=== PATIENT | female | born 1990 | race Caucasian/White ===

== ENCOUNTER → 2020-04-10 | Outpatient (CLI) | payer BC ==
--- NOTE | 2020-04-10 14:43 | US ---
EXAMINATION TYPE: US abdomen complete DATE OF EXAM: 04/10/2020 COMPARISON: NONE CLINICAL HISTORY: R10.2 PELVIC PAIN,N94.10 DYSPAREUNIA IN FEMALE,R10.9 ABD NICOLE. EXAM MEASUREMENTS: Liver Length: 12.4 cm Gallbladder Wall: 0.1 cm CBD: 0.3 cm Spleen: 10.2 cm Right Kidney: 9.0 x 3.0 x 3.4 cm Left Kidney: 9.3 x 4.6 x 4.1 cm Pancreas: partially obscured by overlying bowel gas Liver: wnl Gallbladder: wnl Evidence for sonographic Gibbs's sign: no CBD: wnl Spleen: wnl Right Kidney: wnl Left Kidney: wnl Upper IVC: wnl Abd Aorta: wnl The liver is homogenous. The intrahepatic portion of the IVC and proximal abdominal aorta are within normal limits. There is no evidence of cholelithiasis. Common bile duct is unremarkable. The visu alized portions of the pancreas are homogenous. The spleen is unremarkable. Kidneys are symmetric a nd free of hydronephrosis. No renal lesions are seen. IMPRESSION: No abnormality seen.
--- NOTE | 2020-04-10 14:43 | US ---
EXAMINATION TYPE: US pelvic complete DATE OF EXAM: 04/10/2020 COMPARISON: NONE CLINICAL HISTORY: R10.2 PELVIC PAIN. TECHNIQUE: . Transabdominal sonographic images of the pelvis were acquired. Transvaginal sonographi c images were medically necessary to better assess the following anatomy: Date of LMP: 03/27/20 EXAM MEASUREMENTS: Uterus: 9.1x 3.7 x 4.8 cm Endometrial Stripe: 0.6 cm Right Ovary: 2.3x 1.8 x 1.4 cm Left Ovary: 2.3 x 1.8 x 1.8 cm 1. Uterus: Anteverted 2. Endometrium: wnl 3. Right Ovary: wnl 4. Left Ovary: wnl 5. Bilateral Adnexa: wnl 6. Posterior cul-de-sac: wnl IMPRESSION: No Distinct abnormality seen.
--- NOTE | 2020-04-10 16:01 | XR ---
EXAMINATION TYPE: XR thoracic spine 2V DATE OF EXAM: 04/10/2020 CLINICAL HISTORY: pain TECHNIQUE: Frontal, lateral, and swimmer's view of thoracic spine are obtained. COMPARISON: None. FINDINGS: Thoracic spine show satisfactory alignment without evidence of acute fracture or dislocatio n. Vertebral body heights are preserved. Disc spaces are well preserved. Visualized ribs are unrem arkable. IMPRESSION: No acute fracture or dislocation is seen in the thoracic spine. ICD 10 NO FRACTURE, INIT IAL EVALUATION
--- NOTE | 2020-04-10 16:01 | XR ---
EXAMINATION TYPE: XR lumbosacral spine min 4V DATE OF EXAM: 04/10/2020 CLINICAL HISTORY: pain COMPARISON: NONE TECHNIQUE: Frontal, lateral, and oblique images of the lumbar spine are obtained. FINDINGS: There are 5 lumbar type vertebral bodies identified. The lumbar spine shows satisfactory alignment without evidence of acute fracture or dislocation. Vertebral body heights are within normal limits. Disc spaces are well preserved. The overlying soft tissue appears unremarkable. IMPRESSION: No acute fracture or dislocation is seen in the lumbar spine.ICD 10 NO FRACTURE, INITIAL EVALUATION
== END | disposition home or self-care (01) ==
LOC: RADUSWWP 13:19
PROVIDERS: ATTEND Family Medicine
DX: R10.2 Pelvic and perineal pain (principal); N94.10 Unspecified dyspareunia; R10.9 Unspecified abdominal pain; M54.5 Low back pain; G89.29 Other chronic pain
CPT/HCPCS: 72070; 72110; 76700; 76856

== ENCOUNTER → 2021-03-18 | Outpatient (CLI) | payer BC | END | disposition home or self-care (01) | LOC: LABWHC1 01-10 14:13 | PROVIDERS: ATTEND Family Medicine | DX: Z13.0 Encounter for screening for diseases of the blood and blood-forming organs and certain disorders involving the immune mechanism (principal); Z83.2 Family history of diseases of the blood and blood-forming organs and certain disorders involving the immune mechanism | CPT/HCPCS: 36415; 81291 ==

== ENCOUNTER → 2021-04-16 | Outpatient (CLI) | payer BC | END | disposition home or self-care (01) | LOC: LABWHC1 16:01 | PROVIDERS: ATTEND Family Medicine | DX: Z09 Encounter for follow-up examination after completed treatment for conditions other than malignant neoplasm (principal); Z83.2 Family history of diseases of the blood and blood-forming organs and certain disorders involving the immune mechanism | CPT/HCPCS: 36415; 81241 ==